=== PATIENT | female | born 1990 | race Caucasian/White ===

== ENCOUNTER 2017-12-06 16:00 | Outpatient (CLI) | payer OTHER, SELFPAY ==
[2017-12-06 16:54] VITALS: BMI 36.1
--- NOTE | 2017-12-09 21:26 | OB.TRI.NOTE ---
History of Present Illness Reason For Visit: DECREASED MOVEMENT Date of Service: 12/06/17 History of Present Illness: decreased movement and some cramping Home Medications Medication Instructions Recorded citalopram 40 mg tablet 40 mg PO QDAY 10/16/17 loratadine 10 mg tablet 10 mg PO QDAY 10/16/17 metformin 1,000 mg tablet 1,000 mg PO DAILY 10/16/17 1 tab PO QDAY 10/16/17 vitamin,calcium,vmwvdwte-snyg-limcl acid tablet ProMETHAzine [Phenergan] 12.5 mg PO Q4H PRN PRN 12/06/17 Ranitidine HCl [Zantac 75] 75 mg PO BID PRN PRN MDD 150 12/06/17 Allergies penicillin G Allergy (Mild, Verified 11/30/17 16:23) Hives Sulfa (Sulfonamide Antibiotics) Allergy (Mild, Verified 11/30/17 16:23) Swelling NST - FHR Rate Baby A Baseline: 140-150 moderate variability Variability:: Moderate Accelerations:: 15 x 15 Decelerations:: None NST Reactive:: Yes FHR Category:: Category I Uterine Activity:: no regular Impression/Plan reactive NST reassuring dc home
== END 2017-12-06 18:12 | disposition home or self-care (01) ==
LOC: WPOUT 16:18 → WP 16:18
PROVIDERS: Visit Provider Obstetrics & Gynecology
DX: O26.899 Other specified pregnancy related conditions, unspecified trimester (principal); R25.2 Cramp and spasm; O36.8190 Decreased fetal movements, unspecified trimester, not applicable or unspecified; Z3A.00 Weeks of gestation of pregnancy not specified
CPT/HCPCS: 59025; 59050; 99218; G0378

== ENCOUNTER → 2017-12-11 10:46 | Outpatient (CLI) | payer OTHER, SELFPAY ==
[2017-12-11 12:43] LABS: Absolute Lymphocyte Count 1.71 X10^3/ul (0.83-4.51); Absolute Neutrophil Count 8.8 X10^3/uL (2.0-7.7); Basophil# 0.02 X10^3/uL; Basophil% 0.2 % (0-1); Eosinophil# 0.25 X10^3/uL; Eosinophils% 2.2 % (0-5); Hemoglobin 11.1 g/dl (12.0-15.0); Lymphocyte # 1.71 X10^3/ul (4.0); Mean Corp Hgb Conc 33.6 g/gl (32-36); Mean Corpuscular Hgb 29.7 pg (27.0-32.0); Mean Corpuscular Volume 88.2 fL (81-99); Mean Platelet Vol. 8.8 fl (6.2-12.0); Monocyte# 0.58 X10^3/uL; Monocyte% 5.1 % (0-10); Platelet Count 262 K/mm3 (150-450); RBC Distribution Width CV 13.5 % (11.6-14.6); RBC Distribution Width SD 42.3 fl (35.1-43.9); Red Blood Count 3.74 M/mm3 (4.2-5.4); White Blood Count 11.4 K/mm3 (4.4-11.0)
[2017-12-11 12:47] LABS: POSITIVE COUNT NO; POSITIVE DIFFERENTIAL NO; POSITIVE MORPHOLOGY NO
[2017-12-11 13:21] LABS: Glucose Challenge Gest 1H 50g 105 mg/dL (70-140)
== END ==
PROVIDERS: Visit Provider Obstetrics & Gynecology
DX: O09.00 Supervision of pregnancy with history of infertility, unspecified trimester (principal); O09.899 Supervision of other high risk pregnancies, unspecified trimester; Z3A.00 Weeks of gestation of pregnancy not specified
CPT/HCPCS: 36415; 82950; 85025; 86850; 86900

== ENCOUNTER → 2018-01-11 18:25 | Outpatient (CLI) | payer OTHER, SELFPAY | PROVIDERS: Visit Provider Obstetrics & Gynecology | DX: Z34.90 Encounter for supervision of normal pregnancy, unspecified, unspecified trimester (principal) | CPT/HCPCS: 87086; 87088 ==

== ENCOUNTER 2018-01-30 04:50 | Inpatient (IN) | payer OTHER, SELFPAY ==
[2018-01-30 04:13] VITALS: BMI 38.8
[2018-01-30 04:48] LABS: ROM Internal Control Test YES-OK TO RESULT pt. (Internal QC); ROM Patient Test POSITIVE (Negative)
[2018-01-30] MEDS: Betamethasone/Betamethasone 30 MG/5 ML Vial 12 MG IM (05:18)
[2018-01-30] MEDS: Lactated Ringers 1,000 ML 999 ML IV (05:42)
[2018-01-30 05:45] LABS: Group B Strep DNA By PCR Negative (Negative); Internal Control PASS; Probe Check PASS; Specimen Processing Control PASS
[2018-01-30 06:18] LABS: Mean Corp Hgb Conc 34.4 g/gl (32-36); Mean Corpuscular Hgb 29.5 pg (27.0-32.0); Mean Corpuscular Volume 85.8 fL (81-99); Mean Platelet Vol. 8.8 fl (6.2-12.0); Platelet Count 209 K/mm3 (150-450); RBC Distribution Width CV 13.7 % (11.6-14.6); RBC Distribution Width SD 41.2 fl (35.1-43.9); Red Blood Count 3.73 M/mm3 (4.2-5.4); White Blood Count 9.9 K/mm3 (4.4-11.0)
[2018-01-30 06:19] LABS: Scan Indicated on CBC? Y/N NO
[2018-01-30] MEDS: miSOPROStol 25 MCG TABLET PO (06:19)
[2018-01-30] MEDS: Lactated Ringers 1,000 ML 50 ML IV ×4 (07:00→20:52)
[2018-01-30] MEDS: Oxytocin 30 units/NS 500 ml 30 UNITS/500 ML IV.SOLN IV (10:37)
[2018-01-30] MEDS: fentaNYL-bupivacaine (epidural) 100 ML BAG EPIDURAL ×3 (13:30→22:40)
[2018-01-30] MEDS: Amnioinfusion- 0.9% NS 1,000 ML IV.SOLN. INTRA-UTER ×2 (15:50→21:35)
--- NOTE | 2018-01-30 20:38 | PCM.HP.OB ---
- Problem List (1) premature rupture of membranes (PPROM) with onset of labor after 24 hours of rupture in first trimester, antepartum Status: Acute (2) History of LEEP (loop electrosurgical excision procedure) of cervix complicating Status: Acute Qualifiers: Comment: serial cervical length US (3) LOBITO III (cervical intraepithelial neoplasia grade III) with severe dysplasia Status: Acute Comment: s/p LEEP, pap PP (4) Anxiety and depression Status: Acute Comment: celexa stable (5) Rh negative state in antepartum period Status: Acute Comment: rhogam PRN and at 28 weeks (6) with history of infertility Status: Acute Qualifiers: Comment: PRR JORGE 03/02/18 by MEG girl Matilad Thomas WEAVER History Date of Admission: 01/30/18 Final JORGE: 01/30/18 Gestational age: 40 Weeks and 0 Days History of this : 27 yo @ 35w4d presents with PPROM clear fluid. she denies any signs of infection. she has a history of a leep but has had normal cervical lengths this Pertinent Past Medical History: Problems (Last Reviewed 01/16/18 @ 10:47 by Jennifer Nieto) premature rupture of membranes (PPROM) with onset of labor after 24 hours of rupture in first trimester, antepartum (Acute) Anxiety and depression (Acute) LOBITO III (cervical intraepithelial neoplasia grade III) with severe dysplasia (Acute) History of LEEP (loop electrosurgical excision procedure) of cervix complicating (Acute) with history of infertility (Acute) Rh negative state in antepartum period (Acute) \PSH: fallopian tube removed, eye surgery leep Allergies penicillin G Allergy (Mild, Verified 01/30/18 04:21) Hives Sulfa (Sulfonamide Antibiotics) Allergy (Mild, Verified 01/30/18 04:21) Swelling Current Medications Acetaminophen (Tylenol) 325 - 650 mg PO Q4H PRN PRN PRN Reason: PAIN OR FEVER >100.4F Al Hydroxide/Mg Hydroxide (Mylanta Ii) 15 - 30 ml PO Q4H PRN PRN PRN Reason: INDIGESTION Betamethasone Acet/Betameth SodPhos (Celestone) 12 mg IM X1 ONE Stop: 01/31/18 05:31 Citric Acid/Sodium Citrate (Bicitra) 30 ml PO UD PRN Lactated Ringer's () 1,000 mls @ 50 mls/hr IV .Q20H [facility] Last Admin: 01/30/18 17:01 Dose: 50 mls/hr Vancomycin HCl (Vancomycin) 1,000 mg in 200 mls @ 200 mls/hr IV Q12H [facility] Last Admin: 01/30/18 17:54 Dose: 200 mls/hr Oxytocin/Sodium Chloride () 30 units in 500 mls @ 1 mls/hr IV .Q500H [facility] Last Admin: 01/30/18 10:37 Dose: 1 mls/hr Naloxone HCl 4 mg/ Dextrose 504 mls @ 0 mls/hr IV PRN PRN; Protocol PRN Reason: TO MAINTAIN RR>10 Nalbuphine HCl (Nubain) 5 - 10 mg IV Q3H PRN PRN PRN Reason: PAIN (4-10/10) Nalbuphine HCl (Nubain) 5 mg IV Q3H PRN PRN Reason: ITCHING Stop: 01/31/18 13:39 Naloxone HCl (Narcan) 0.2 mg IV Q1M PRN PRN Reason: RR<10 AND PT UNRESPONSIVE Stop: 01/31/18 13:39 Ondansetron HCl (Zofran) 4 mg IV Q8H PRN PRN PRN Reason: NAUSEA Promethazine HCl (Phenergan Iv) 6.25 - 12.5 mg IV Q4H PRN PRN; Protocol PRN Reason: IF NAUSEA PERSISTS Sodium Chloride () 5 - 15 ml IV UD [facility] Last Admin: 01/30/18 09:38 Dose: Not Given Smoking Status: Never smoker Alcohol: None Drug Use: none Number of Fetus(es): 1 - 140 moderate variability Review of Systems Constitutional: Denies: Chills, Fever, Weight Change HEENT: Denies: Head Aches, Sinus Congestion, Sinus Drainage Cardiovascular: Denies: Chest Pain, Palpitations Respiratory: Denies: Cough, Shortness of breath at rest, Sputum production Gastrointestinal: Reports: Abdominal Pain, Nausea Genitourinary: Denies: Dysuria Gynecological: Reports: Vaginal discharge. Denies: Vaginal bleeding Physical Exam General: Alert, Oriented x3, No apparent distress Cardiovascular: Regular rate Lungs: Normal air movement Abdomen: Soft, Non Tender, Gravid Extremities:: No edema Estimated gestational size: Large for gestational age Presentation: Cephalic Cervix Dilation (cm): 1.5 Station: -3 Effacement (%): 50 Assessment/Plan Active and Suspected Problems (Last Reviewed 01/16/18 @ 10:47 by Jennifer Nieto) premature rupture of membranes (PPROM) with onset of labor after 24 hours of rupture in first trimester, antepartum (Acute) 27 yo @ 35w4d presents with PPROM 1. PPROM- recommend IOL due to being over 34 weeks, monitor for signs of chorio 2. vancomycin for GBS prophylaxis 3. prematurity- give BMZ 4. cytotec then pitocin IOL 5. Epi PRN
--- NOTE | 2018-01-30 20:41 | HP.PCM_ITS ---
- Problem List (1) premature rupture of membranes (PPROM) with onset of labor after 24 hours of rupture in first trimester, antepartum Status: Acute (2) History of LEEP (loop electrosurgical excision procedure) of cervix complicating Status: Acute Qualifiers: Comment: serial cervical length US (3) LOBITO III (cervical intraepithelial neoplasia grade III) with severe dysplasia Status: Acute Comment: s/p LEEP, pap PP (4) Anxiety and depression Status: Acute Comment: celexa stable (5) Rh negative state in antepartum period Status: Acute Comment: rhogam PRN and at 28 weeks (6) with history of infertility Status: Acute Qualifiers: Comment: PRR JORGE 03/02/18 by MEG girl Matilda Thomas WEAVER History Date of Admission: 01/30/18 Final JORGE: 01/30/18 Gestational age: 40 Weeks and 0 Days History of this : 27 yo @ 35w4d presents with PPROM clear fluid. she denies any signs of infection. she has a history of a leep but has had normal cervical lengths this Pertinent Past Medical History: Problems (Last Reviewed 01/16/18 @ 10:47 by Jennifer Nieto) premature rupture of membranes (PPROM) with onset of labor after 24 hours of rupture in first trimester, antepartum (Acute) Anxiety and depression (Acute) LOBITO III (cervical intraepithelial neoplasia grade III) with severe dysplasia ( Acute) History of LEEP (loop electrosurgical excision procedure) of cervix complicating (Acute) with history of infertility (Acute) Rh negative state in antepartum period (Acute) \PSH: fallopian tube removed, eye surgery leep Allergies penicillin G Allergy (Mild, Verified 01/30/18 04:21) Hives Sulfa (Sulfonamide Antibiotics) Allergy (Mild, Verified 01/30/18 04:21) Swelling Current Medications Acetaminophen (Tylenol) 325 - 650 mg PO Q4H PRN PRN PRN Reason: PAIN OR FEVER >100.4F Al Hydroxide/Mg Hydroxide (Mylanta Ii) 15 - 30 ml PO Q4H PRN PRN PRN Reason: INDIGESTION Betamethasone Acet/Betameth SodPhos (Celestone) 12 mg IM X1 ONE Stop: 01/31/18 05:31 Citric Acid/Sodium Citrate (Bicitra) 30 ml PO UD PRN Lactated Ringer's () 1,000 mls @ 50 mls/hr IV .Q20H [facility] Last Admin: 01/30/18 17:01 Dose: 50 mls/hr Vancomycin HCl (Vancomycin) 1,000 mg in 200 mls @ 200 mls/hr IV Q12H [facility] Last Admin: 01/30/18 17:54 Dose: 200 mls/hr Oxytocin/Sodium Chloride () 30 units in 500 mls @ 1 mls/hr IV .Q500H [facility] Last Admin: 01/30/18 10:37 Dose: 1 mls/hr Naloxone HCl 4 mg/ Dextrose 504 mls @ 0 mls/hr IV PRN PRN; Protocol PRN Reason: TO MAINTAIN RR>10 Nalbuphine HCl (Nubain) 5 - 10 mg IV Q3H PRN PRN PRN Reason: PAIN (4-10/10) Nalbuphine HCl (Nubain) 5 mg IV Q3H PRN PRN Reason: ITCHING Stop: 01/31/18 13:39 Naloxone HCl (Narcan) 0.2 mg IV Q1M PRN PRN Reason: RR<10 AND PT UNRESPONSIVE Stop: 01/31/18 13:39 Ondansetron HCl (Zofran) 4 mg IV Q8H PRN PRN PRN Reason: NAUSEA Promethazine HCl (Phenergan Iv) 6.25 - 12.5 mg IV Q4H PRN PRN; Protocol PRN Reason: IF NAUSEA PERSISTS Sodium Chloride () 5 - 15 ml IV UD [facility] Last Admin: 01/30/18 09:38 Dose: Not Given Smoking Status: Never smoker Alcohol: None Drug Use: none Number of Fetus(es): 1 - 140 moderate variability Review of Systems Constitutional: Denies: Chills, Fever, Weight Change HEENT: Denies: Head Aches, Sinus Congestion, Sinus Drainage Cardiovascular: Denies: Chest Pain, Palpitations Respiratory: Denies: Cough, Shortness of breath at rest, Sputum production Gastrointestinal: Reports: Abdominal Pain, Nausea Genitourinary: Denies: Dysuria Gynecological: Reports: Vaginal discharge. Denies: Vaginal bleeding Physical Exam General: Alert, Oriented x3, No apparent distress Cardiovascular: Regular rate Lungs: Normal air movement Abdomen: Soft, Non Tender, Gravid Extremities:: No edema Estimated gestational size: Large for gestational age Presentation: Cephalic Cervix Dilation (cm): 1.5 Station: -3 Effacement (%): 50 Assessment/Plan Active and Suspected Problems (Last Reviewed 01/16/18 @ 10:47 by Jennifer Nieto) premature rupture of membranes (PPROM) with onset of labor after 24 hours of rupture in first trimester, antepartum (Acute) 27 yo @ 35w4d presents with PPROM 1. PPROM- recommend IOL due to being over 34 weeks, monitor for signs of chorio 2. vancomycin for GBS prophylaxis 3. prematurity- give BMZ 4. cytotec then pitocin IOL 5. Epi PRN
--- NOTE | 2018-01-30 20:48 | PCM.PN.BLA ---
Progress Note fht 150s min- moderate variability reactive occasional late decels and mild variables but they resolve. pitocin on and off due to tracing. overall making slow progress. no signs of chorio. exp management and pitocin PRN.
[2018-01-30] MEDS: Mag Hydrox/Al Hydrox/Simeth 30 ML UDC PO (22:03)
[2018-01-31] MEDS: Ondansetron 4 MG/2 ML Vial IV (01:09)
[2018-01-31] MEDS: Lactated Ringers 1,000 ML 50 ML IV (01:14)
[2018-01-31] MEDS: Oxytocin 30 units/NS 500 ml 30 UNITS/500 ML IV.SOLN 334 UNITS IV (02:36)
--- NOTE | 2018-01-31 02:56 | PCM.OB.VAG ---
- Problem List (1) premature rupture of membranes (PPROM) with onset of labor after 24 hours of rupture in first trimester, antepartum Status: Acute (2) History of LEEP (loop electrosurgical excision procedure) of cervix complicating Status: Acute Qualifiers: Comment: serial cervical length US (3) LOBITO III (cervical intraepithelial neoplasia grade III) with severe dysplasia Status: Acute Comment: s/p LEEP, pap PP (4) Anxiety and depression Status: Acute Comment: celexa stable (5) Rh negative state in antepartum period Status: Acute Comment: rhogam PRN and at 28 weeks (6) with history of infertility Status: Acute Qualifiers: Comment: PRR JORGE 03/02/18 by MEG girl Matilda Thomas HOOD MEG Vaginal Delivery Maternal Presentation: Spontaneous Rupture of Membranes 27 yo @ 35w4d presents with PPROM Method of Induction: Pitocin, Cytotec Medical Reason for Induction: Premature Rupture of Membranes Amniotic Membrane Rupture Type: Spontaneous at home Amniotic Fluid Description: Clear Final JORGE: 03/02/18 Gestational age: 35 Weeks and 5 Days Date of Procedure: 01/31/18 Pre-Operative Diagnosis: pprom Post-Operative Diagnosis: same Surgery/ Procedure Performed: Spontaneous Vaginal Delivery Type of Anesthesia: Epidural Description of Procedure: 27 yo @ 35w5d presents with PPROM Patient began pushing and delivered the head in the JANINA presentation. The head was delivered atraumatically. There was a moderate shoulder dystocia that lasted approximately 60 seconds and was remedied with danya, and then the anterior and posterior shoulders delivered without complication followed by the rest of the and the infant was placed on the maternal abdomen. Delayed cord clamping was employed for approximately 60 seconds. Cord was clamped and cut and gentle traction was applied to the cord and the placenta delivered spontaneously immediately following it was noted to be intact with three-vessel cord. The perineum and vagina were inspected and noted to have a laceration, which was repaired in the usual fashion with 3-0 vicryl rapide. EBL was 250 cc. Patient and tolerated delivery well. Presentation: JANINA Placental Delivery Description: Spontaneous Placenta Disposition: [facility] Cord Entanglement: None Estimated Blood Loss: 250 A gender: Female Episiotomy Description: None Laceration: Perineal Extension/lac, 2nd degree Medications given after delivery: IV Pitocin Complications: - - moderate shoulder dystocia
[2018-01-31] MEDS: Oxytocin 30 units/NS 500 ml 30 UNITS/500 ML IV.SOLN 167 UNITS IV (03:06)
--- NOTE | 2018-01-31 03:10 | DCINST_ITS ---
Discharge Diet: No Restrictions Discharge Activity: Return to Normal Activity, May not drive while taking narcotic pain medications., May Shower May resume sexual activity in: 4-6 weeks Call your doctor if your incision/area has: Continuous Slow Oozing, Sudden Increased Bleeding, Increased Pain/ Swelling, Increased Redness, Foul Smelling Discharge Additional Instructions: If you experience any of the following, contact your healthcare provider. * Bleeding that soaks a pad every hour for 2 hours * Fever 100.4 or higher * Unrelieved incision or abdominal pain * Swelling, redness, discharge or bleeding from your incision or episiotomy site * Your incision begins to separate * Problems urinating (including inability to urinate or burning while urinating) . * Visual changes * Severe headache * Flu-like symptoms * Pain or redness in one of both of your breasts * Pain, warmth, tenderness or swelling in your legs, especially the calf area * Frequent nausea and vomiting * Symptoms of depression or anxiety If you experience any of the following, call 911 or go to the nearest Emergency Room. * Chest pain * Problems breathing * Seizure activity * Partial or complete paralysis of a body part, slurred speech, weakness or drooping of the face, or a sudden inability to walk or hold your balance Allergies/Adverse Reactions: Allergies penicillin G Allergy (Mild, Verified 01/30/18 04:21) Hives Sulfa (Sulfonamide Antibiotics) Allergy (Mild, Verified 01/30/18 04:21) Swelling Medications to take at Discharge citalopram 40 mg tablet 40 mg PO QDAY 10/16/17 loratadine 10 mg tablet 10 mg PO QDAY 10/16/17 vitamin,calcium,xiwscqyv-ismo-zffvg acid tablet 1 tab PO QDAY 10/16/17 Famotidine [Pepcid] 20 mg PO DAILY 01/30/18 Naproxen [Naprosyn] 250 - 500 mg PO Q8H PRN PRN #30 tab 01/31/18 The following prescriptions were given: Naproxen [Naprosyn] 250 - 500 mg PO Q8H PRN PRN #30 tab PRN Reason: MILD PAIN Please Follow Up With: Tatiana Frankel MD - [phone] When: Call to make an appointment with your doctor in 6 weeks. If you had elevated Blood pressure or 4th degree laceration you will need to be seen in 2 weeks. Primary Care Physician: Eliot Baxter [Primary Care Provider] -
--- NOTE | 2018-01-31 04:44 | NURSING ---
cervical change made from 3cm previously to now 5cm
[2018-01-31 05:05] VITALS: BP 118/60; PULSE 98; RESP 20; TEMP 36.3
[2018-01-31] MEDS: 0.9% Saline Lock 10 ML Syringe IV (05:13)
[2018-01-31 07:00] VITALS: BP 118/70; PULSE 103; RESP 18; TEMP 36.1; O2SAT 98
[2018-01-31] MEDS: Citalopram 40 MG TABLET PO (07:21)
[2018-01-31] MEDS: Acetaminophen 500 MG Tablet 1000 MG PO ×2 (09:49→23:19)
[2018-01-31 14:00] VITALS: BP 124/73; PULSE 98; RESP 16; TEMP 35.7; O2SAT 98
[2018-01-31] MEDS: Naproxen 250 MG Tablet PO (15:16)
[2018-01-31 20:45] VITALS: BP 124/72; PULSE 101; RESP 16; O2SAT 96
[2018-01-31] MEDS: Famotidine 20 MG Tablet PO (22:47)
[2018-01-31] MEDS: Loratadine 10 MG Tablet PO (22:47)
[2018-01-31] MEDS: ALPRAZolam 0.5 MG Tablet PO (22:52)
[2018-02-01 00:50] VITALS: BP 117/72; PULSE 92; RESP 18; TEMP 35.8; O2SAT 97
[2018-02-01 06:51] VITALS: BP 114/74; PULSE 92; RESP 18; TEMP 36.1; O2SAT 97
--- NOTE | 2018-02-01 07:26 | NURSING ---
This RN agrees with all documentation completed by Bernice student nurse
[2018-02-01 09:00] VITALS: BP 120/77; PULSE 100; RESP 16; TEMP 36.5; O2SAT 97
[2018-02-01] MEDS: Prenatal Vits Tablet 1 TABLET PO (11:25)
[2018-02-01] MEDS: Acetaminophen 500 MG Tablet 1000 MG PO (13:09)
[2018-02-01 14:20] VITALS: BP 111/67; PULSE 99; TEMP 36.3; O2SAT 98
[2018-02-01] MEDS: Senna/Docusate Sodium 1 Tablet PO (14:20)
[2018-02-01 20:20] VITALS: BP 139/82; PULSE 85; RESP 16; TEMP 35.9
[2018-02-01] MEDS: Naproxen 250 MG Tablet PO (20:32)
[2018-02-01] MEDS: Famotidine 20 MG Tablet PO (22:25)
[2018-02-01] MEDS: Citalopram 40 MG TABLET PO (22:25)
[2018-02-01] MEDS: Loratadine 10 MG Tablet PO (22:25)
[2018-02-01 23:45] VITALS: BP 124/79
[2018-02-02 03:05] VITALS: BP 100/56; PULSE 83; RESP 16; TEMP 36.2
[2018-02-02] MEDS: Acetaminophen 500 MG Tablet 1000 MG PO (03:13)
[2018-02-02] MEDS: Naproxen 250 MG Tablet PO (07:53)
[2018-02-02] MEDS: Prenatal Vits Tablet 1 TABLET PO (07:53)
[2018-02-02] MEDS: Senna/Docusate Sodium 1 Tablet PO (07:53)
[2018-02-02 07:55] VITALS: BP 137/81; PULSE 87; RESP 16; TEMP 36.8; O2SAT 97
--- NOTE | 2018-02-02 07:55 | PCM.PN.OB ---
Patient Problems: Active and Suspected Problems (Last Reviewed 01/16/18 @ 10:47 by Jennifer Nieto) premature rupture of membranes (PPROM) with onset of labor after 24 hours of rupture in first trimester, antepartum (Acute) Subjective: doing well n ocomplaints - Physical Exam General: Alert, Oriented x3 Vital Signs Temp Pulse Resp BP Pulse Ox 97.1 F L 83 16 100/56 L 98 02/02/18 03:05 02/02/18 03:05 02/02/18 03:05 02/02/18 03:05 02/01/18 14:20 Oxygen Delivery Method Room Air Weight: 205 lb 7.533 oz Body Mass Index (BMI) 38.8 Intake and Output for Last 24 Hours 01/31/18 02/01/18 02/02/18 23:59 23:59 23:59 Intake Total 3035 / 3035 Output Total 1600 / 1600 Balance 1435 / 1435 Medical Necessity - Tobacco Use Smoking Status: Never smoker Assessment/Plan Active and Suspected Problems (Last Reviewed 01/16/18 @ 10:47 by Jennifer Nieto) premature rupture of membranes (PPROM) with onset of labor after 24 hours of rupture in first trimester, antepartum (Acute) s/p routine care ar home
== END 2018-02-02 10:30 | disposition home or self-care (01) | DRG 775 ==
LOC: WP 10:03 → WPOUT 10:03
PROVIDERS: Admitting Provider Obstetrics & Gynecology; Visit Provider Obstetrics & Gynecology
DX: O42.913 Preterm premature rupture of membranes, unspecified as to length of time between rupture and onset of labor, third trimester (principal); O99.344 Other mental disorders complicating childbirth; F32.9 Major depressive disorder, single episode, unspecified; O66.0 Obstructed labor due to shoulder dystocia; O70.1 Second degree perineal laceration during delivery; F41.9 Anxiety disorder, unspecified; Z37.0 Single live birth; Z87.42 Personal history of other diseases of the female genital tract; Z3A.35 35 weeks gestation of pregnancy; Z79.899 Other long term (current) drug therapy
CPT/HCPCS: 59025; 59050; 76815; 84112; 85027; 85461; 86850; 86900; 87081; 87653; 90384; 99218; J7030; J7120; A4216; G0378; J0702; J2405; J2790

== ENCOUNTER → 2018-03-19 16:28 | Outpatient (CLI) | payer OTHER, SELFPAY ==
[2018-03-22 17:45] LABS: HPV Reflexed? NOT INDICATED
== END ==
PROVIDERS: Visit Provider Obstetrics & Gynecology
DX: Z12.4 Encounter for screening for malignant neoplasm of cervix (principal)
CPT/HCPCS: 88175; G0145

== ENCOUNTER → 2019-05-08 | Outpatient (CLI) | payer OTHER, SELFPAY ==
[2019-05-08 14:05] VITALS: BMI 35.7
[2019-05-13 16:21] LABS: HPV APTIMA, High Risk Negative (Negative)
== END | disposition home or self-care (01) ==
PROVIDERS: Referring Provider Obstetrics & Gynecology; Visit Provider Obstetrics & Gynecology
DX: D06.9 Carcinoma in situ of cervix, unspecified (principal)
CPT/HCPCS: 87624; 88175; G0145

== ENCOUNTER → 2020-07-28 13:46 | Outpatient (CLI) | payer OTHER, SELFPAY ==
[2020-07-28 13:09] VITALS: BMI 35.7
[2020-07-28 14:54] LABS: Vitamin D,25 Hydroxy 32.3 ng/mL
[2020-07-28 14:59] LABS: Estradiol 51.2 pg/mL; Follicle Stimulating Hormone 8.2 mIU/mL; Prolactin 11.4 ng/mL; Thyroid Stim Hormone (TSH) 2.22 uIU/mL (0.358-3.74)
[2020-08-03 10:28] LABS: HPV APTIMA, High Risk Negative (Negative)
[2020-08-03 15:15] LABS: Testosterone Free 3.2 pg/mL (0.0-4.2)
== END ==
PROVIDERS: Referring Provider Obstetrics & Gynecology; Visit Provider Obstetrics & Gynecology
DX: E28.2 Polycystic ovarian syndrome (principal); Z12.4 Encounter for screening for malignant neoplasm of cervix
CPT/HCPCS: 36415; 82306; 82670; 83001; 84146; 84402; 84443; 87624; 88175; G0145

== ENCOUNTER → 2022-11-09 | Outpatient (CLI) | payer OTHER, SELFPAY ==
[2022-11-17 17:33] LABS: HPV APTIMA, High Risk Negative (Negative)
== END | disposition home or self-care (01) ==
LOC: LABSPEC 17:26
PROVIDERS: PCP Family Medicine; Visit Provider Obstetrics & Gynecology
DX: Z12.4 Encounter for screening for malignant neoplasm of cervix (principal)
CPT/HCPCS: 87624; 88175; G0145

== ENCOUNTER → 2023-09-25 | Outpatient (CLI) | payer BC, SELFPAY ==
[2023-09-25 16:45] LABS: HIV - WCH Non-Reactive (Nonreactive); Hepatitis C Antibody Non-Reactive (Nonreactive); Syphilis Antibodies Non-reactive
[2023-09-27 05:07] LABS: HSV 1 IgG < 0.91 index (0.00-0.90); HSV 2 IgG < 0.91 index (0.00-0.90)
[2023-09-28 10:09] LABS: Chlamydia By Nucleic Acid AMP Negative (Negative); Gonococcus By Nucleic Acid AMP Negative (Negative)
== END | disposition home or self-care (01) ==
PROVIDERS: Referring Provider Nurse Practitioner Women's Health; Visit Provider Nurse Practitioner Women's Health
DX: N89.8 Other specified noninflammatory disorders of vagina (principal); Z20.2 Contact with and (suspected) exposure to infections with a predominantly sexual mode of transmission
CPT/HCPCS: 36415; 86695; 86696; 86703; 86780; 86803; 87070; 87077; 87186; 87205; 87491; 87591

== ENCOUNTER → 2023-11-09 | Outpatient (CLI) | payer BC, SELFPAY ==
[2023-11-15 18:07] LABS: HPV APTIMA, High Risk Negative (Negative)
== END | disposition home or self-care (01) ==
PROVIDERS: Referring Provider Obstetrics & Gynecology; Visit Provider Obstetrics & Gynecology
DX: Z12.4 Encounter for screening for malignant neoplasm of cervix (principal)
CPT/HCPCS: 87624; 88175; G0145